=== PATIENT | male | born 1990 | race Caucasian/White ===

== ENCOUNTER 2017-02-18 06:41 | Emergency (ER) | payer OTHER ==
[~2017-02-18] VITALS: Ht 175.3 cm; Wt 61.2 kg
[2017-02-18 06:49] VITALS: BP 137/71
--- NOTE | 2017-02-18 06:52 | NUR ---
PT TAKEN TO BED 7 Addendum: 02/18/17 at 0659 by AMIE PT TAKEN TO BED 8
--- NOTE | 2017-02-18 07:00 | NUR ---
Dr. Hooks evaluating patient at bedside.
[2017-02-18] MEDS ORDERED: FAMOTIDINE 20 MG/2 ML VIAL IVP ONE (07:05)
[2017-02-18] MEDS ORDERED: ONDANSETRON 4 MG/2 ML VIAL IVP ONE ×2 (07:05→07:10)
[2017-02-18] MEDS ORDERED: NACL 0.9% 1,000 ML IV SCH (07:05)
[2017-02-18] MEDS ORDERED: NACL 0.9% 1,000 ML IV ONE (07:10)
--- NOTE | 2017-02-18 07:10 | NUR ---
PT CAME TO ER DUE TO POSSIBLE FOOD POSION FROM [facility], VOMIT X3 DAYS NO BLOOD;PT STATES HE HAS ABDOMINAL PAIN W/ VOMITTING FOR THE PAST 2 DAYS;PAIN SCALE OF 7/10 NON RADIATING;PT IS AAOX4;NO ACUTE DISTRESS NOTED AT THIS TIME;HOB ELEVATED;NEEDS ATTENDED;SAFETY MEASURES DONE;MD MICHAUD OF PT'S CONDITION.
[2017-02-18 07:32] LABS: BASOPHILS # (AUTO) 0.1 K/uL (0.00-0.22); BASOPHILS % (AUTO) 1.4 % (0.0-2.0); EOSINOPHILS # (AUTO) 0.1 K/uL (0-0.4); HEMATOCRIT 50.7 % (36-52); HEMOGLOBIN 16.8 g/dL (12.0-18.0); LYMPHOCYTES # (AUTO) 1.2 K/uL (2.0-11.5); LYMPHOCYTES % (AUTO) 12.2 % (20.5-51.1); MEAN CORPUSCULAR HEMOGLOBIN 30 pg (27-31); MEAN CORPUSCULAR HGB CONC 33 g/dL (33-37); MEAN CORPUSCULAR VOLUME 90 fL (80-94); MONOCYTES # (AUTO) 0.9 K/uL (0.8-1.0); MONOCYTES % (AUTO) 9.4 % (1.7-9.3); NEUTROPHILS # (AUTO) 7.7 K/uL (1.8-7.7); PLATELET COUNT (AUTO) 263 K/uL (140-450); RED BLOOD CELL COUNT(AUTO) 5.63 MIL/uL (4.20-6.10); RED CELL DISTRIBUTION WIDTH 12.1 % (11.6-13.7)
[2017-02-18 07:41] LABS: ANION GAP 15.1 (8-16); CALCIUM 9.6 mg/dL (8.5-10.1); CARBON DIOXIDE 26.3 mmol/L (21-32); POTASSIUM 3.4 mmol/L (3.5-5.1)
[2017-02-18 07:46] LABS: ALBUMIN 4.8 g/dL (3.4-5.0); TOTAL PROTEIN, SERUM 7.9 g/dL (6.4-8.2)
--- NOTE | 2017-02-18 08:14 | NUR ---
PT LYING ON BED;VERBALIZES" I'M FEELING MUCH BETTER NOW";NO ACUTE DISTRESS NOTED AT VTHIS TIME;WILL CONTINUE TO MONITOR PT.
[2017-02-18 08:17] LABS: APPEARANCE,URINE TURBID (CLEAR); BILIRUBIN,URINE NEGATIVE (NEGATIVE); COLOR,URINE YELLOW (YELLOW); LEUKOCYTE ESTERASE ,URINE NEGATIVE (NEGATIVE); NITRITE, URINE NEGATIVE (NEGATIVE); PH,URINE 6.5 (5.0-9.0); PROTEIN,URINE NEGATIVE (NEGATIVE); UGLUCOSE NEGATIVE (NEGATIVE)
--- NOTE | 2017-02-18 08:25 | NUR ---
PT STATES HE'S HUNGRY AND WANTS TO GO HOME;NOTIFIED DR JACOBS;EXPALINED TO PT THAT HE CAN'T EAT AT THE MOMENT;PT AND FATHER VERBALIZES UNDERSTANDING;BS OF 107;WILL CONTINUE TO MONITOR PT;
[2017-02-18 08:32] LABS: BLOOD, URINE TRACE (NEGATIVE)
[2017-02-18 08:33] LABS: BACTERIA,URINE OCCASSIONAL /HPF (None Seen); RBC,URINE 0-5 (RARE) /HPF (0-5); SQUAMOUS EPITHELIAL CELL,UR 0-3 (FEW) /LPF (0-3 (FEW)); URINE AMORPHOUS PHOSPHATES 1+ /HPF (None Seen); WBC,URINE 0-5 (RARE) /HPF (0-5)
--- NOTE | 2017-02-18 09:08 | NUR ---
Patient discharged with v/s stable. Written and verbal after care instructions given and explained.Patient alert, oriented and verbalized understanding of instructions. Carried with steady gait. All questions addressed prior to discharge. ID band removed. Patient advised to follow up with PMD. Rx of ZOFRAN given. Patient educated on indication of medication including possible reaction and side effects. Opportunity to ask questions provided and answered.ADVISED PT TO HAVE SOFT DIET AT THE MOMENT.
[2017-02-18 09:09] VITALS: BP 146/98
== END 2017-02-18 09:08 | disposition home or self-care (01) ==
LOC: MED 06:41
DX: T62.91XA Toxic effect of unspecified noxious substance eaten as food, accidental (unintentional), initial encounter (principal); K52.1 Toxic gastroenteritis and colitis; E86.0 Dehydration; F17.200 Nicotine dependence, unspecified, uncomplicated; Y92.89 Other specified places as the place of occurrence of the external cause
CPT/HCPCS: 36415; 80053; 81001; 82150; 82948; 83690; 85025; 96361; 96374; 96375; 99284; J2405; J3490; J7030